=== PATIENT | male | born 1995 | race Caucasian/White ===

== ENCOUNTER → 2023-03-04 10:44 | Outpatient (CLI) | payer MEDICAID, SELFPAY ==
--- NOTE | 2023-03-04 10:57 | XR_ITS ---
FINAL REPORT CLINICAL HISTORY: rt knee pain, anterior swelling, no pain, no known injury, tendons lengthened age 6 COMPARISON: None FINDINGS: RIGHT KNEE 3 views of the right knee were obtained. There is no acute fracture or dislocation. No bony destruction. Visualized joint spaces are normally aligned. Significant soft tissue swelling proximal pretibial region. IMPRESSION: No acute bony abnormality. Reviewed, Interpreted and Dictated by Patricia Gross MD Transcribed by Meryl Hobbs Authenticated and [facility]
== END ==
PROVIDERS: PCP Physician Assistant; Visit Provider Orthopaedic Surgery
DX: M25.561 Pain in right knee (principal)
CPT/HCPCS: 73562